=== PATIENT | female | born 1990 | race African-American/Black ===

== ENCOUNTER 2021-02-22 17:42 | Emergency (ER) | payer OTHER, SELFPAY ==
[2021-02-22 17:55] VITALS: BP 128/73; PULSE 87; RESP 18; TEMP 36.7; O2SAT 97
--- NOTE | 2021-02-22 20:36 | ED.FEMALEGU ---
HPI - Female Genitourinary General Chief complaint: Vaginal Bleeding Stated complaint: reaction to vaginal medications Time Seen by Provider: 02/22/21 20:20 Source: patient and RN notes reviewed Mode of arrival: ambulatory Limitations: no limitations History of Present Illness HPI Narrative: Patient is 31 years old -Mexican female presents with vaginal bleeding. Started yesterday immediately after inserting metronidazole suppository intravaginally.. Last menstrual period was February 08 which is 10 days ago. History of bilateral tubal ligation, patient is not vaccinated for COVID-19. Patient claiming the possibility of scratching herself while putting the suppository. Patient also telling me that she been passing blood clots since yesterday patient had a recent diagnosis of bacterial vaginosis. Related Data Allergies Allergy/AdvReac Type Severity Reaction Status Date / Time amoxicillin AdvReac Rash Verified 02/22/21 20:14 nitrofurantoin AdvReac Rash Verified 02/22/21 20:14 [From Macrobid] Review of Systems Review of Systems: CONSTITUTIONAL: Denies fever, chills, or sweats. EYES: Denies visual changes, redness, or discharge. ENT: Denies rhinorrhea, congestion, sore throat, or otalgia. CARDIOVASCULAR: Denies chest pain, palpitations, or edema. RESPIRATORY: Denies cough or dyspnea. GASTROINTESTINAL: Denies abdominal pain, nausea, vomiting, or diarrhea. GENITOURINARY: Denies dysuria or hematuria. SKIN: Denies rash or itching. MUSCULOSKELETAL: Denies back pain, joint pain, or myalgia. NEUROLOGIC: Denies headache, numbness, or weakness. PSYCHIATRIC: Denies anxiety or depression. Exam Narrative: General appearance: Well-developed, well-nourished Skin: Normal color Head: Normocephalic, nontraumatic Eyes: Clear conjunctiva ENT: Oropharynx normal, ears normal, nose normal Neck: Supple, nontender Chest and respiratory: Airway patent, no respiratory distress, no accessory muscle use Heart: Regular rate/rhythm Abdomen: Soft, nontender, no organomegaly, quiet bowel sounds Vascular: Normal peripheral pulses, normal capillary refill. Musculoskeletal: Normal range of motion, nontender back Neurologic: Alert and oriented ?3, [employer] is normal as tested, no gross motor deficit : External Female Exam: normal external appearance, normal appearance of the urethra and Abnormal introitus Speculum Exam - Vagina: normal appearance of the vagina and vaginal bleeding (Slight vaginal bleeding, 2 Q-tip was enough to dry the whole vaginal vault) Speculum Exam - Cervix: Cervical os closed Course Course Emergency Course: Stable Vital Signs Vital signs: Vital Signs Temperature 36.7 C 02/22/21 17:55 Pulse Rate 87 02/22/21 17:55 Respiratory Rate 18 02/22/21 17:55 Blood Pressure 128/73 02/22/21 17:55 Pulse Oximetry 97 02/22/21 17:55 Temperature 36.7 C 02/22/21 17:55 Pulse Rate 87 02/22/21 17:55 Respiratory Rate 18 02/22/21 17:55 Blood Pressure 128/73 02/22/21 17:55 Pulse Oximetry 97 02/22/21 17:55 MDM - Female Genitourinary MDM Narrative Medical decision making narrative: Patient presents with dysfunctional uterine bleeding pelvic exam showed slight vaginal bleeding, 2 Q-tip was enough to dry the whole vaginal vault. No blood clots, no laceration, no tumor the blood was coming out of the os. Critical Care Time Critical Care Time Critical Care Time: Yes Total Critical Care Time: 30 Discharge Plan Discharge Clinical Impression: Dysfunctional uterine bleeding Patient Disposition: Home, Self-Care Condition: Stable Instructions: Abnormal (Dysfunctional) Uterine Bleeding (ED) Additional Instructions: Re
[2021-02-22 21:02] LABS: Basophils Absolute Auto 0.1 K/mm3 (0.0-0.1); Basophils Percent Auto 0.5 % (0.2-1.2); Eosinophils Absolute Auto 0.2 K/mm3 (0-0.3); Eosinophils Percent Auto 1.9 % (0-4.4); Hematocrit 41.9 % (37.0-47.0); Hemoglobin 13.8 g/dL (12.0-15.0); Immature Granulocyte Absolute 0.03 K/mm3 (0.00-0.031); Immature Granulocyte Percent A 0.3 % (0-0.5); Lymphocytes Absolute Auto 4.36 K/mm3 (0.9-3.2); Lymphocytes Percent Auto 42.2 % (18.3-44.2); Mean Corpuscular HGB Conc 32.9 g/dl (32-36); Mean Corpuscular Hemoglobin 29.1 pg (26-34); Mean Corpuscular Volume 88.2 fl (80-100); Mean Platelet Volume 9.5 fl (7.4-10.4); Monocytes Absolute Auto 0.5 K/mm3 (0.1-0.6); Monocytes Percent Auto 5.1 % (2.6-8.5); Neutrophils Absolute Auto 5.2 K/mm3 (1.3-6.7); Platelet Count Result 240 k/mm3 (150-375); Red Blood Count 4.75 M/mm3 (4.2-5.4); Red Cell Distribution Width 13.8 % (11.5-14.5); White Blood Count 10.3 K/mm3 (4.5-10.0)
[2021-02-22 22:16] VITALS: BP 103/65; PULSE 65
[2021-02-22 22:17] VITALS: BP 121/83; PULSE 66
[2021-02-22 22:18] VITALS: BP 121/84; PULSE 70
== END 2021-02-22 22:56 | disposition home or self-care (01) ==
PROVIDERS: Emergency Provider Emergency Medicine
DX: N93.8 Other specified abnormal uterine and vaginal bleeding (principal)
CPT/HCPCS: 36415; 81025; 85025; 99283

== ENCOUNTER 2021-11-24 13:59 | Emergency (ER) | payer OTHER, SELFPAY ==
[2021-11-24] VITALS (12 sets, daily range): BP systolic 112–151; BP diastolic 76–96; PULSE 69–106; RESP 12–24; TEMP 36.6; O2SAT 96–100
--- NOTE | ~2021-11-24 | XR_ITS ---
EXAMINATION: XR chest 1V portable INDICATION: Palpitations, shortness of breath TECHNIQUE: Portable AP chest at 1433 hours COMPARISON: None available FINDINGS: The lungs are free of acute opacities. No pleural effusion or pneumothorax. The cardiomedia stinal silhouette is normal. IMPRESSION: 1. No acute cardiopulmonary abnormality. Reviewed, dictated and finalized at location F.
--- NOTE | 2021-11-24 14:11 | ECG_ITS ---
Measurements Intervals [place] Rate: 97 P: 64 NV: 155 QRS: 52 QRSD: 108 T: 42 QT: 376 QTc: 479 Interpretive Statements SINUS RHYTHM WITHIN NORMAL LIMITS NO PREVIOUS ECG AVAILABLE FOR COMPARISON Electronically Signed On 11-24-2021 16:54:21 CDT by Rubin Stokes M.D.
--- NOTE | 2021-11-24 14:26 | ED.ARRPALP ---
HPI - Arrhythmia/Palpitations General Chief Complaint: Arrhythmia/Palpitations Stated Complaint: palpations Time Seen by Provider: 11/24/21 14:08 Source: RN notes reviewed History of Present Illness HPI narrative: Patient presents emergency department from home for palpitations. The patient states she was started on phentermine last week for weight loss. has been taking it daily and today she went to work out states that following working out she smoked a reasonable cigarette black cigarette she is a feeling that she began feeling her heart was racing and she felt jittery. Patient states that she is feeling mildly better at this time but still feels like her heart is racing she denies any fevers or chills, chest pain shortness of breath abdominal pain states he nausea vomiting or any other symptoms Related Data Allergies Allergy/AdvReac Type Severity Reaction Status Date / Time amoxicillin AdvReac Rash Verified 11/24/21 15:11 nitrofurantoin AdvReac Rash Verified 11/24/21 15:11 [From Macrobid] Review of Systems Review of Systems: Gen.: Denies fevers or chills ENT: Denies congestion Respiratory: Denies shortness of breath or cough CV: See HPI GI: Denies abdominal pain nausea, emesis or diarrhea denies Musculoskeletal: Denies back pain or muscle pain Neuro: Denies numbness, tingling, weakness or focal weakness Skin: Denies rash Except as documented, all other systems reviewed and negative PMFSH Past Medical History Medical History (Updated 11/24/21 @ 17:55 by Gray Duran DO) Patient denies significant medical history Social History Social History (Updated 11/24/21 @ 14:28 by Gray Duran DO) Smoking status: Current every day smoker Exam Narrative: APPEARANCE: No acute distress, nontoxic, resting in bed EYES: EOMI HEENT: Normocephalic, atraumatic, OMM RESPIRATORY: No respiratory distress Clear to auscultation bilaterally with no rhonchi wheezing or rales. CARDIOVASCULAR: Regular rate and rhythm without murmurs rubs or gallops. ABDOMINAL: Soft, nontender, nondistended, no rebound or guarding MUSCULOSKELETAl: Moves all extremities. No clubbing, cyanosis or edema. NEURO: Awake and alert. Following commands, speech normal, no focal deficits SKIN:: Warm, dry. 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 Discussed need for follow-up with primary care, proper use of medication, and reasons to return to the emergency department. Patient understands and agrees to current treatment plan Vital Signs Vital signs: Vital Signs Temperature 97.8 F 11/24/21 14:02 Pulse Rate 103 H 11/24/21 14:02 Respiratory Rate 18 11/24/21 14:02 Blood Pressure 151/96 H 11/24/21 14:02 Pulse Oximetry 96 11/24/21 14:02 Oxygen Delivery Room Air 11/24/21 14:02 Temperature 97.8 F 11/24/21 14:02 Pulse Rate 74 11/24/21 17:15 Respiratory Rate 19 11/24/21 17:15 Blood Pressure 112/76 11/24/21 16:46 Pulse Oximetry 100 11/24/21 17:15 Oxygen Delivery Room Air 11/24/21 14:02 MDM - Arrhythmia/Palpitations Lab Data Result diagrams: 11/24/21 14:24 11/24/21 14:24 Labs: Lab Results 11/24/21 11/24/21 11/24/21 Range/Units 14:24 14:24 14:24 WBC 7.8 (4.5-10.0) K/mm3 RBC 4.96 (4.2-5.4) M/mm3 Hgb 13.6 (12.0-15.0) g/dL Hct 41.5 (37.0-47.0) % MCV 83.7 (80-100) fl MCH 27.4 (26-34) pg MCHC 32.8 (32-36) g/dl RDW 14.8 H (11.5-14.5) % Plt Count 289 (150-375) k/mm3 MPV 9.2 (7.4-10.4) fl Immature Gran % (Auto) 0.1 (0-0.5) % Neut % (Auto) 58.3 (45.5
[2021-11-24 14:41] LABS: Basophils Absolute Auto 0.1 K/mm3 (0.0-0.1); Basophils Percent Auto 0.9 % (0.2-1.2); Eosinophils Absolute Auto 0.1 K/mm3 (0-0.3); Eosinophils Percent Auto 1.5 % (0-4.4); Hematocrit 41.5 % (37.0-47.0); Hemoglobin 13.6 g/dL (12.0-15.0); Immature Granulocyte Absolute 0.01 K/mm3 (0.00-0.031); Immature Granulocyte Percent A 0.1 % (0-0.5); Lymphocytes Absolute Auto 2.62 K/mm3 (0.9-3.2); Lymphocytes Percent Auto 33.6 % (18.3-44.2); Mean Corpuscular HGB Conc 32.8 g/dl (32-36); Mean Corpuscular Hemoglobin 27.4 pg (26-34); Mean Corpuscular Volume 83.7 fl (80-100); Mean Platelet Volume 9.2 fl (7.4-10.4); Monocytes Absolute Auto 0.4 K/mm3 (0.1-0.6); Monocytes Percent Auto 5.6 % (2.6-8.5); Neutrophils Absolute Auto 4.5 K/mm3 (1.3-6.7); Neutrophils Percent Auto 58.3 % (45.5-73.1); Platelet Count Result 289 k/mm3 (150-375); Red Blood Count 4.96 M/mm3 (4.2-5.4); Red Cell Distribution Width 14.8 % (11.5-14.5); White Blood Count 7.8 K/mm3 (4.5-10.0)
[2021-11-24 14:53] LABS: Prothrombin Time 13.2 Seconds (11.1-14.7)
[2021-11-24 14:54] LABS: Partial Thromboplastin Time 29.3 SECONDS (22.3-36.8)
[2021-11-24 15:02] LABS: Alanine Aminotransferase 13 U/L (6-35); Albumin Level 4.6 g/dL (3.5-5.1); Alkaline Phosphatase 64 U/L (38-126); Anion Gap 9 mmol/L (8-16); Aspartate Amino Transferase 27 U/L (14-36); Bilirubin,Total 0.8 mg/dL (0.2-1.3); Blood Urea Nitrogen 14 mg/dL (7-17); Calcium 9.4 mg/dL (8.4-10.2); Carbon Dioxide 22 mmol/L (22-30); Chloride 107 mmol/L (98-107); Estimated CRCL calculation 93 ml/min; Estimated Glomerular Filt Rate > 60; Glucose 92 mg/dL (65-110); Lipase 38 U/L (23-300); Potassium 3.8 mmol/L (3.4-5.0); Sodium 138 mmol/L (137-145)
[2021-11-24 15:06] LABS: Troponin I 0.012 ng/mL (0.000-0.034)
[2021-11-24] MEDS: SODIUM CHLORIDE 0.9% IV 1,000 ML 999 ML IV CONT (15:10)
[2021-11-24 17:45] LABS: Troponin I < 0.012 ng/mL (0.000-0.034)
== END 2021-11-24 18:00 | disposition home or self-care (01) ==
PROVIDERS: Emergency Provider Emergency Medicine
DX: R00.2 Palpitations (principal); F17.210 Nicotine dependence, cigarettes, uncomplicated
CPT/HCPCS: 36415; 71045; 80053; 81025; 83690; 83735; 84443; 84484; 85025; 85610; 85730; 93005; 96360; 99284; J7030

== ENCOUNTER 2022-01-12 16:43 | Emergency (ER) | payer MEDICAID, SELFPAY ==
--- NOTE | ~2022-01-12 | CT_ITS ---
EXAMINATION: CT abdomen pelvis w con DATE: 01/12/2022 18:05 INDICATION: Mid abdominal pain for 2 week. TECHNIQUE: Computed tomography (CT) of the abdomen and pelvis was performed with 100 cc Omnipaque 350 intravenous contrast. The dose-length product was 543.83 mGy-cm. Automated exposure control and iter ative reconstruction technique were employed. COMPARISON: None. FINDINGS: Lung bases are unremarkable. Heart size is normal. No significant pleural or pericardial ef fusion. No significant vascular abnormality. No lymphadenopathy. The liver, spleen, pancreas, adrenal glands and kidneys are unremarkable. Gallbladder is present. Non obstructive bowel gas pattern. Normal appendix. No free air or free fluid. No abnormal pelvic masses. No acute osseous abnormality. IMPRESSION: 1. No acute abdominal abnormality. Reviewed, dictated and finalized at location A.
[2022-01-12 16:45] VITALS: BP 122/79; PULSE 100; RESP 16; TEMP 36.6; O2SAT 100
[2022-01-12 17:03] LABS: Basophils Absolute Auto 0.1 K/mm3 (0.0-0.1); Eosinophils Absolute Auto 0.2 K/mm3 (0-0.3); Eosinophils Percent Auto 2.7 % (0-4.4); Hematocrit 45.2 % (37.0-47.0); Hemoglobin 14.9 g/dL (12.0-15.0); Lymphocytes Absolute Auto 3.23 K/mm3 (0.9-3.2); Mean Corpuscular Hemoglobin 27.5 pg (26-34); Mean Corpuscular Volume 83.4 fl (80-100); Mean Platelet Volume 9.7 fl (7.4-10.4); Monocytes Absolute Auto 0.5 K/mm3 (0.1-0.6); Monocytes Percent Auto 7.4 % (2.6-8.5); Neutrophils Absolute Auto 2.8 K/mm3 (1.3-6.7); Neutrophils Percent Auto 40.9 % (45.5-73.1); Platelet Count Result 292 k/mm3 (150-375); Red Blood Count 5.42 M/mm3 (4.2-5.4); Red Cell Distribution Width 15.2 % (11.5-14.5); White Blood Count 6.7 K/mm3 (4.5-10.0)
--- NOTE | 2022-01-12 17:08 | ED.ABDPAIN ---
HPI - Abdominal Pain General Chief Complaint: Abdominal Pain Stated Complaint: abd pain Time Seen by Provider: 01/12/22 17:00 Source: patient Mode of arrival: ambulatory Limitations: no limitations History of Present Illness HPI narrative: This is a 31 year old female that presents to the ER for epigastric pain present over the last couple of weeks. The pain is burning in nature. Worse after eating. Some relief with arleth seltzer. Denies fever, nausea, vomiting, or diarrhea. Related Data Allergies Allergy/AdvReac Type Severity Reaction Status Date / Time amoxicillin AdvReac Rash Verified 01/12/22 16:53 nitrofurantoin AdvReac Rash Verified 01/12/22 16:53 [From Macrobid] Review of Systems Review of Systems: CONSTITUTIONAL: Denies fever GASTROINTESTINAL: Reports abdominal pain. Denies nausea, vomiting, or diarrhea. GENITOURINARY: Denies dysuria or hematuria. All systems reviewed & are unremarkable except as noted in HPI and below PMFSH Past Medical History Medical History (Updated 01/12/22 @ 19:24 by Lady Marshall PA-C) Patient denies significant medical history Surgical History Surgical History (Updated 01/12/22 @ 17:10 by Lady Marshall PA-C) History of tubal ligation Social History Social History (Updated 01/12/22 @ 17:11 by Lady Marshall PA-C) Smoking status: Current every day smoker Substance use: never Exam Narrative: GENERAL: Well-appearing, well-nourished, and in no acute distress. HEAD: Normocephalic, atraumatic. EYES: EOMI. CHEST: Clear to auscultation. No respiratory distress. No wheezes rales or rhonchi HEART: Regular rate and rhythm. No murmur heard. Normal peripheral pulses. ABDOMEN: Soft, nondistended, normal active bowel sounds. Mild tenderness to palpation in the epigastrium, without guarding EXTREMITIES: Normal range of motion. No edema. SKIN: Warm, dry, no rash. NEURO: No focal deficits. Alert and oriented x3. PSYCH: Normal mood and affect Course Vital Signs Vital signs: Vital Signs Temperature 97.9 F 01/12/22 16:45 Pulse Rate 100 01/12/22 16:45 Respiratory Rate 16 01/12/22 16:45 Blood Pressure 122/79 01/12/22 16:45 Pulse Oximetry 100 01/12/22 16:45 Oxygen Delivery Room Air 01/12/22 16:45 Temperature 97.9 F 01/12/22 16:45 Pulse Rate 100 01/12/22 16:45 Respiratory Rate 16 01/12/22 16:45 Blood Pressure 122/79 01/12/22 16:45 Pulse Oximetry 100 01/12/22 16:45 Oxygen Delivery Room Air 01/12/22 16:45 MDM - Abdominal Pain MDM Narrative Medical decision making narrative: Patient presents to the emergency department for epigastric abdominal pain, worse with eating. Noted over the last couple weeks. She is afebrile and nontoxic-appearing. Her vitals are stable. CBC and metabolic panel without concerning findings. Lipase is normal. UA with 6-10 white blood cells, but many squamous epithelial cells. Patient is not having any urinary symptoms. Bedside test is negative. CT scan of the abdomen and pelvis without acute findings. Patient was updated on case findings. Instructed to continue [id number] PPI. Is to follow-up with her primary care doctor. Will also be given gastroenterology if needed. She was given warnings to return to the ER Lab Data Attestation: I reviewed the patient's lab results. Result diagrams: 01/12/22 16:55 01/12/22 17:21 Labs: Lab Results 01/12/22 01/12/22 01/12/22 Range/Units 16:55 17:04 17:21 WBC 6.7 (4.5-10.0) K/mm3 RBC 5.42 H (4.2-5.4) M/mm3 Hgb 14.9 (12.0-15.0) g/dL Hct 45.2 (37.0-47.0) % MCV 83.4 (80-100) fl MCH 27.5 (26-34) pg MCHC 33.0 (32-36) g/dl RDW 15.2 H (11.5-14.5) % Plt Count 292 (150-375) k/mm3 MPV 9.7 (7.4-10.4) fl Immature Gran % (Auto) 0.0 (0-0.5) % Neut % (Auto) 40.9 L (45.5-73.1) % Lymph % (Auto) 48.0 H (18.3-44.2) % [place] % (Auto) 7.4 (2.6-8.5) % Eos %
[2022-01-12 17:14] LABS: Appearance Urine Slightly Cloudy (Clear); Bilirubin Urine 1+ (Negative); Color Urine Yellow (Yellow); Glucose Urine UA Negative (Negative); Ketones Urine Trace mg/dL (Negative); Leukocyte Esterase Ur Trace LEU/UL (Negative); Nitrate Urine Negative (Negative); Protein Urine 1+ mg/dL (Negative); pH Urine 7.5 (5.0-9.0)
[2022-01-12 17:20] LABS: Add Urine Microscopic? YES; Blood Urine Trace-Intact (Negative)
[2022-01-12 17:22] LABS: Mucus Urine Heavy /lpf; Squamous Epithelial Cell Urine Many /hpf (Few)
[2022-01-12] MEDS: SODIUM CHLORIDE 0.9% IV 1,000 ML 999 ML IV CONT (17:30)
[2022-01-12] MEDS: PANTOPRAZOLE SODIUM IV 40 MG VIAL IV PUSH (17:31)
[2022-01-12] MEDS: ONDANSETRON INJ 4 MG/2 ML VIAL IV PUSH (17:31)
[2022-01-12 17:36] LABS: Alanine Aminotransferase 11 U/L (6-35); Albumin Level 4.6 g/dL (3.5-5.1); Alkaline Phosphatase 71 U/L (38-126); Anion Gap 8 mmol/L (8-16); Aspartate Amino Transferase 23 U/L (14-36); Bilirubin,Total 0.7 mg/dL (0.2-1.3); Blood Urea Nitrogen 12 mg/dL (7-17); Calcium 9.1 mg/dL (8.4-10.2); Carbon Dioxide 27 mmol/L (22-30); Chloride 102 mmol/L (98-107); Estimated CRCL calculation 92 ml/min; Estimated Glomerular Filt Rate > 60; Glucose 93 mg/dL (65-110); Lipase 78 U/L (23-300); Potassium 3.7 mmol/L (3.4-5.0); Sodium 137 mmol/L (137-145)
--- NOTE | 2022-01-12 17:55 | PC.NURSE ---
Pt to CT.
[2022-01-12 19:41] VITALS: BP 104/62; PULSE 86; RESP 18; O2SAT 100
== END 2022-01-12 19:42 | disposition home or self-care (01) ==
PROVIDERS: Emergency Provider General Practice
DX: R10.13 Epigastric pain (principal); F17.200 Nicotine dependence, unspecified, uncomplicated
CPT/HCPCS: 36415; 74177; 80053; 81001; 81025; 83690; 85025; 96361; 96365; 96375; 99284; C9113; J0131; J2405; J7030; Q9967

== ENCOUNTER 2023-02-15 15:40 | Emergency (ER) | payer OTHER, SELFPAY ==
[2023-02-15 15:42] VITALS: BP 119/69; PULSE 72; RESP 17; TEMP 37.1; O2SAT 99
--- NOTE | 2023-02-15 16:40 | PC.NURSE ---
first call to room patient at this time, no answer
--- NOTE | 2023-02-15 16:46 | PC.NURSE ---
second attempt at calling patient from waiting room to room, no answer. patient left without being seen
== END 2023-02-15 16:46 | disposition left against medical advice (07) ==
LOC: ANHED 16:52
DX: Z11.3 Encounter for screening for infections with a predominantly sexual mode of transmission (principal)
CPT/HCPCS: 99199

== ENCOUNTER 2023-02-15 17:41 | Emergency (ER) | payer OTHER, SELFPAY ==
[2023-02-15 17:45] VITALS: BP 122/79; PULSE 73; RESP 15; TEMP 37; O2SAT 99
--- NOTE | 2023-02-15 18:30 | ED.GENADULT ---
HPI - General Adult General Chief complaint: Unspecified Stated complaint: pt reports possible exposure to STI Time Seen by Provider: 02/15/23 18:22 History of Present Illness HPI narrative: 33 y/o F reports for evaluation for STD testing. The patient was tested for GC, chlamydia and trichomonas by her PCP on 02/01. States she was contacted by her PCP this week who told her the STD testing was negative, however she received a call from the health department today stating she was positive for chlamydia. She denies dysuria, hematuria, vaginal discharge, vaginal lesions, vaginal bleeding, abdominal pain, back pain, fever, vomiting. LMP 02/07. Pt came to the ED to get repeat testing. She has not been treated. Related Data Allergies Allergy/AdvReac Type Severity Reaction Status Date / Time amoxicillin AdvReac Rash Verified 01/12/22 16:53 nitrofurantoin AdvReac Rash Verified 01/12/22 16:53 [From [place]ima] Review of Systems Review of Systems: CONSTITUTIONAL: Denies fever, chills EYES: Denies visual changes, redness, or discharge. ENT: Denies rhinorrhea, congestion, sore throat, or otalgia. CARDIOVASCULAR: Denies chest pain, palpitations, or edema. RESPIRATORY: Denies cough or dyspnea. GASTROINTESTINAL: Denies abdominal pain, nausea, vomiting, or diarrhea. GENITOURINARY: Denies dysuria or hematuria. SKIN: Denies rash or itching. MUSCULOSKELETAL: Denies back pain, joint pain, or myalgia. NEUROLOGIC: Denies headache, numbness, dizziness, or weakness. PSYCHIATRIC: Denies anxiety or depression. [facility] Past Medical History Medical History Patient denies significant medical history Surgical History Surgical History History of tubal ligation Social History Social History Smoking status: Current every day smoker Substance use: never Exam Narrative: GENERAL: Well-appearing, in no acute distress. HEAD: Normocephalic NECK: Supple. CHEST: No respiratory distress. Clear to auscultation, no adventitious breath sounds. HEART: Regular rate and rhythm. No murmur heard. Normal peripheral pulses. ABDOMEN: Soft, nontender, normal active bowel sounds. No CVA tenderness. : No lesions, erythema or edema to external genitalia, vaginal canal or cervix. Scant amount of brown discharge in vaginal vault. No mucopurulent drainage, bright red blood. Cervical os closed. No CMT. No adnexal masses or tenderness appreciated. EXTREMITIES: Normal range of motion. No edema. SKIN: Warm, dry, no rash. NEURO: No focal deficits. Alert and oriented x3. PSYCH: Normal mood and affect. Course Vital Signs Vital signs: Vital Signs Temperature 98.6 F 02/15/23 17:45 Pulse Rate 73 02/15/23 17:45 Respiratory Rate 02/15/23 17:45 Blood Pressure 122/79 02/15/23 17:45 Pulse Oximetry 99 02/15/23 17:45 Oxygen Delivery Room Air 02/15/23 17:45 Temperature 98.6 F 02/15/23 17:45 Pulse Rate 73 02/15/23 17:45 Respiratory Rate 02/15/23 17:45 Blood Pressure 122/79 02/15/23 17:45 Pulse Oximetry 99 02/15/23 17:45 Oxygen Delivery Room Air 02/15/23 17:45 Medical Decision Making MDM Narrative Medical decision making narrative: 33-year-old female reports for evaluation for STD testing. See HPI for further history. She is well-appearing on exam and vitals are stable. Abdomen is soft and nontender. Pelvic exam shows a scant amount of blood, likely secondary to patient's resolving menstruation. No CMT or mucopurulent drainage. UA significant for hematuria, no UTI. Media positive. Trichomonas and gonorrhea are negative. test negative. Patient does not meet criteria for PID. Labs discussed with patient. Plan to treat her with Rocephin and doxycycline and have her follow-up with her PCP. First dose provided here. Encourag
[2023-02-15 19:21] LABS: Appearance Urine Cloudy (Clear); Bacteria Urine Rare /hpf; Bilirubin Urine Negative (Negative); Blood Urine 3+ (Negative); Color Urine Yellow (Yellow); Glucose Urine UA Negative (Negative); Ketones Urine Negative (Negative); Leukocyte Esterase Ur Negative LEU/UL (Negative); Nitrate Urine Negative (Negative); Non Pathogenic Casts 0-2; Protein Urine Negative (Negative); RBC Urine 0-2 /hpf (0-2); Specific Grav Ur 1.033 (1.001-1.035); Squamous Epithelial Cell Urine Moderate /hpf (Few); Urobilinogen Urine 0.2 mg/dL (<2.0); WBC Urine 0-5 /hpf; pH Urine 5.5 (5.0-9.0)
[2023-02-15 19:39] LABS: Add Urine Microscopic? YES
[2023-02-15 21:05] LABS: Trichomonas Vag PCR NOT DETECTED (NOT DETECTE)
[2023-02-15 21:31] LABS: Chlamydia trachomatis DETECTED (NOT DETECTE); Neisseria gonorrhoeae PCR NOT DETECTED (NOT DETECTE)
[2023-02-15] MEDS: DOXYCYCLINE HYCLATE 100 MG TABLET PO (22:37)
[2023-02-15] MEDS: cefTRIAXone 1 GM VIAL 0.5 GM IM (22:38)
[2023-02-15 22:51] VITALS: BP 125/78; PULSE 72; RESP 17; O2SAT 100
== END 2023-02-15 22:53 | disposition home or self-care (01) ==
PROVIDERS: Emergency Provider Physician Assistant
DX: A74.9 Chlamydial infection, unspecified (principal); F17.210 Nicotine dependence, cigarettes, uncomplicated
CPT/HCPCS: 81001; 81025; 87491; 87591; 87661; 96372; 99284; A9270; J0696

== ENCOUNTER 2024-02-13 10:40 | Emergency (ER) | payer OTHER, SELFPAY ==
[2024-02-13 10:54] VITALS: BP 120/75; PULSE 88; RESP 15; TEMP 36.8; O2SAT 100
[2024-02-13 12:15] VITALS: BP 123/77; PULSE 84; RESP 16; O2SAT 100
--- NOTE | 2024-02-13 13:01 | ED.GENADULT ---
HPI - General Adult General Chief complaint: Unspecified Stated complaint: ear, throat pain, yeast infection Time Seen by Provider: 02/13/24 12:19 History of Present Illness HPI narrative: 34-year-old female presenting with URI symptoms and vaginal discharge. States that for the last day or so she has had a sore throat as well as some right ear pain. States that she called her PCP today who advised that she come to the ER. She is concerned that she has strep. She also complains of a thick vaginal discharge. States that she is chronically on Flagyl for BV and she recently ran out. States that she did have unprotected intercourse recently. States that she would like to be tested for STDs. No abdominal pain, dysuria, nausea or vomiting. No chest pain or shortness of breath. Related Data Allergies Allergy/AdvReac Type Severity Reaction Status Date / Time amoxicillin AdvReac Rash Verified 02/13/24 10:59 nitrofurantoin AdvReac Rash Verified 02/13/24 10:59 [From Macrobid] Review of Systems Review of Systems: All systems reviewed & are unremarkable except as noted in HPI and below PMFSH Past Medical History Medical History Patient denies significant medical history Surgical History Surgical History History of tubal ligation Social History Social History Smoking status: Current every day smoker Substance use: never Exam Narrative: GENERAL: Well-appearing, well-nourished, and in no acute distress. HEAD: Normocephalic, atraumatic. EYES: PERRLA and EOMI. ENT: Mild posterior pharyngeal erythema, no edema, no exudates; normal TMs NECK: Supple. CHEST: Clear to auscultation. No respiratory distress. HEART: Regular rate and rhythm ABDOMEN: Soft, nontender, nondistended EXTREMITIES: Normal range of motion. SKIN: Warm, dry, no rash. NEURO:Alert and oriented x3. PSYCH: Normal mood and affect. Course Vital Signs Vital signs: Vital Signs Temperature 98.3 F 02/13/24 10:54 Pulse Rate 88 02/13/24 10:54 Respiratory Rate 15 02/13/24 10:54 Blood Pressure 120/75 02/13/24 10:54 Pulse Oximetry 100 02/13/24 10:54 Oxygen Delivery Room Air 02/13/24 10:54 Temperature 98 F 02/13/24 15:16 Pulse Rate 80 02/13/24 15:16 Respiratory Rate 16 02/13/24 15:16 Blood Pressure 105/74 02/13/24 15:16 Pulse Oximetry 99 02/13/24 15:16 Oxygen Delivery Room Air 02/13/24 10:54 Medical Decision Making MDM Narrative Medical decision making narrative: 34-year-old female presenting with sore throat and vaginal discharge. Vitals within normal limits. Exam is unremarkable. Patient is negative for COVID, influenza, RSV. Negative for Trichomonas. Gonorrhea and chlamydia are pending, patient would like empiric treatment which has been provided. Patient reports history of BV, will send in for a course of Flagyl. Discussed appropriate supportive care and return precautions. Patient is agreeable with this plan. Discharged in stable condition. Differential Diagnosis Differential Diagnosis: Sore throat, URI, vaginal discharge Medical Records Medical records reviewed: Yes I reviewed the external patient's medical records. Vital Signs Vital Signs: Vital Signs Temperature 98.3 F 02/13/24 10:54 Pulse Rate 88 02/13/24 10:54 Respiratory Rate 15 02/13/24 10:54 Blood Pressure 120/75 02/13/24 10:54 Pulse Oximetry 100 02/13/24 10:54 Oxygen Delivery Room Air 02/13/24 10:54 Temperature 98 F 02/13/24 15:16 Pulse Rate 80 02/13/24 15:16 Respiratory Rate 16 02/13/24 15:16 Blood Pressure 105/74 02/13/24 15:16 Pulse Oximetry 99 02/13/24 15:16 Oxygen Delivery Room Air 02/13/24 10:54 Lab Data Lab results reviewed: Yes I reviewed the patient's lab results. Labs: Lab Results 0
[2024-02-13] MEDS: ACETAMINOPHEN 500 MG TABLET 1000 MG PO (13:10)
[2024-02-13] MEDS: IBUPROFEN 400 MG TABLET PO (13:11)
[2024-02-13 13:18] LABS: Add Urine Microscopic? YES; Appearance Urine Cloudy (Clear); Bacteria Urine Rare /hpf; Bilirubin Urine Negative (Negative); Blood Urine Negative (Negative); Color Urine Yellow (Yellow); Glucose Urine UA Negative (Negative); Ketones Urine Negative (Negative); Leukocyte Esterase Ur Trace LEU/UL (Negative); Nitrate Urine Negative (Negative); Non Pathogenic Casts 0-2; Protein Urine Trace mg/dL (Negative); Specific Grav Ur 1.021 (1.001-1.035); Squamous Epithelial Cell Urine Few /hpf (Few); Urobilinogen Urine 0.2 mg/dL (<2.0); WBC Urine 0-5 /hpf (0-3)
[2024-02-13 13:49] LABS: Strep Group A RT-PCR NOT DETECTED (Negative)
[2024-02-13 14:01] LABS: Influenza A QL RT-PCR Negative (Negative); Influenza B QL RT-PCR Negative (Negative); RSV RNA, RT-PCR Negative (Negative); SARS-CoV-2 RNA PCR Negative (Negative)
[2024-02-13 14:26] LABS: Trichomonas Vag PCR NOT DETECTED (NOT DETECTE)
[2024-02-13 14:50] LABS: Chlamydia trachomatis NOT DETECTED (NOT DETECTE); Neisseria gonorrhoeae PCR NOT DETECTED (NOT DETECTE)
[2024-02-13 15:16] VITALS: BP 105/74; PULSE 80; RESP 16; TEMP 36.6; O2SAT 99
== END 2024-02-13 15:16 | disposition home or self-care (01) ==
PROVIDERS: Emergency Provider Emergency Medicine; PCP Internal Medicine
DX: J06.9 Acute upper respiratory infection, unspecified (principal); N89.8 Other specified noninflammatory disorders of vagina; F17.200 Nicotine dependence, unspecified, uncomplicated; Z20.822 Contact with and (suspected) exposure to COVID-19; Z11.3 Encounter for screening for infections with a predominantly sexual mode of transmission
CPT/HCPCS: 81001; 87491; 87591; 87637; 87651; 87661; 99283; A9270

== ENCOUNTER 2024-06-02 03:27 | Emergency (ER) | payer OTHER, SELFPAY ==
--- NOTE | ~2024-06-02 | XR_ITS ---
Portable chest x-ray Comparison: 11/24/2021 Clinical History: Shortness of breath Findings: Lungs are clear, without focal consolidation or pleural effusion. Cardiomediastinal silho uette is stable. Bones and soft tissues are unremarkable. Impression: Normal chest. Reviewed, dictated and finalized at location . [facility] AREA Impression: Normal chest.
--- NOTE | 2024-06-02 03:29 | ECG_ITS ---
Test Date: 2024-06-02 03:48:33 Measurements Intervals [place] Rate: 111 P: 66 MN: 145 QRS: 62 QRSD: 85 T: 42 QT: 312 QTc: 425 Interpretive Statements SINUS TACHYCARDIA ABNORMAL RHYTHM ECG No previous ECG available for comparison Electronically Signed On 06-02-2024 22:50:44 [employer]ITCHER AROUND by Valerio Melendez M.D.
[2024-06-02 03:30] VITALS: BP 149/111; PULSE 151; RESP 18; TEMP 36.9; O2SAT 99
[2024-06-02 04:13] VITALS: O2SAT 99
[2024-06-02 04:13] LABS: Basophils Percent Auto 0.4 % (0.2-1.2); Eosinophils Absolute Auto 0.1 K/mm3 (0-0.3); Eosinophils Percent Auto 1.2 % (0-4.4); Hematocrit 39.2 % (37.0-47.0); Immature Granulocyte Absolute 0.02 K/mm3 (0.00-0.031); Immature Granulocyte Percent A 0.3 % (0-0.5); Lymphocytes Absolute Auto 1.91 K/mm3 (0.9-3.2); Lymphocytes Percent Auto 25.5 % (18.3-44.2); Mean Corpuscular HGB Conc 33.2 g/dl (32-36); Mean Corpuscular Hemoglobin 27.2 pg (26-34); Monocytes Absolute Auto 0.6 K/mm3 (0.1-0.6); Monocytes Percent Auto 7.9 % (2.6-8.5); Neutrophils Absolute Auto 4.9 K/mm3 (1.3-6.7); Neutrophils Percent Auto 64.7 % (45.5-73.1); Platelet Count Result 309 k/mm3 (150-375); Red Blood Count 4.78 M/mm3 (4.2-5.4); Red Cell Distribution Width 14.7 % (11.5-14.5); White Blood Count 7.5 K/mm3 (4.5-10.0)
[2024-06-02 04:31] LABS: Alanine Aminotransferase 13 U/L (6-35); Albumin Level 4.4 g/dL (3.5-5.1); Alkaline Phosphatase 61 U/L (38-126); Anion Gap 6 mmol/L (4-12); Aspartate Amino Transferase 24 U/L (14-36); Bilirubin,Total 0.6 mg/dL (0.2-1.3); Blood Urea Nitrogen 12 mg/dL (7-17); Carbon Dioxide 23 mmol/L (22-30); Chloride 108 mmol/L (98-107); Estimated CRCL calculation 106 ml/min; Estimated Glomerular Filt Rate > 60; Glucose 139 mg/dL (65-110); Potassium 3.7 mmol/L (3.4-5.0); Sodium 137 mmol/L (137-145)
[2024-06-02] MEDS: diazePAM INJ (*CRX) 10 MG/2 ML SYRINGE 5 MG IV PUSH (04:38)
[2024-06-02 04:41] LABS: Strep Group A RT-PCR NOT DETECTED (Negative)
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
[2024-06-02 04:52] LABS: Influenza A QL RT-PCR Negative (Negative); Influenza B QL RT-PCR Negative (Negative); RSV RNA, RT-PCR Negative (Negative); SARS-CoV-2 RNA PCR Negative (Negative)
[2024-06-02 05:58] VITALS: BP 134/90; PULSE 87; RESP 15; O2SAT 100
--- OUTSIDE RECORDS SUMMARY | 2024-06-09 03:11 | XMS_ITS ---
Author Organization [facility] Address [address] [place] [address] Care Team Providers Care Structural Iron Erector Name Role Phone Silvana Benítez Primary Care Provider [phone] REASON FOR VISIT r/s from 01/02/2024 Encounters Encounter Location Date Provider Diagnosis [address] [place] [address] 01/23/2024 Silvana Benítez Plan Of Treatment No Information Progress Notes * Carmen HUFF NDOB:1990 (34 yo F)Acc No.[id number]:01/23/2024 UNLOCKED PROGRESS NOTE Patient:?Carmen HUFF Provider:?Silvana Benítez, LEONID, GAS CHARGER-BC, PMHNP-BC :1990???Age:33 Y???Sex:Female D ate:01/23/2024 Address:[facility] Subjective: * Chief Complaints: * ???1. R/s from 01/02/2024. * Medical History:? Objective: * Vitals:? Assessment: Plan: * Treatment: * * Electronic signature of Silvana Benítez , [id number] on 06/09/2024 at 03:11 AM ARTIST AGENT Sign off status: Pending * Provider:?Dakota Grissom, GAS CHARGER-BC, PMHNP-BC Date:?01/23/2024 Generated for Martin wen/Dona/eTransmitting on:?06/09/2024 03:11 AM ARTIST AGENT
--- OUTSIDE RECORDS SUMMARY | 2024-06-09 03:12 | XMS_ITS ---
Author Organization [facility] Address [address] [place] [address] Care Team Providers Care Lighting Technician Name Role Phone Silvana Benítez Primary Care Provider REASON FOR VISIT 1 Month Psych F/U & Med Refill Encounters Encounter Location Date Provider Diagnosis [address] [place] [address] 01/02/2024 Silvana Benítez Plan Of Treatment No Information Progress Notes * Carmen HUFF NDOB:1990 (34 yo F)Acc No.[id number]:01/02/2024 UNLOCKED PROGRESS NOTE Patient:?Carmen HUFF Provider:?Silvana Benítez, LEONID, DIRECTOR OF MARKETING [employer] PERFORMANCE ADS-BC, PMHNP-BC :1990???Age:33 Y???Sex:Female D ate:01/02/2024 [facility] Subjective: * Chief Complaints: * ???1. 1 Month Psych F/U & Me d Refill. * Medical History:? Objective: * Vitals:? Assessment: Plan: * Treatment: * * Electronic signature of Silvana Benítez , [id number] on 06/09/2024 at 03:11 AM DEVELOPMENT MANAGER Sign off status: Pending * Provider:?Dakota Grissom, DIRECTOR OF MARKETING [employer] PERFORMANCE ADS-BC, PMHNP-BC Date:?01/02/2024 Generated for Martin wen/Dona/eTransmitting on:?06/09/2024 03:11 AM DEVELOPMENT MANAGER
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
--- OUTSIDE RECORDS SUMMARY | 2024-06-09 03:32 | XMS_ITS | Patient Health Record ---
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 Name Role Phone Silvana Benítez Primary Care Provider Allergies Allergen (clinical drug ingredient) Drug/Non Drug Allergy documented on EMR Reaction Allergy Type Onset Date Status nitrofurantoin, macrocrystals / nitrofurantoin, monohydrate Macrobid Unknown Drug Allergy Active amoxicillin Amoxicillin Unknown Drug Allergy Act baldev Reason For Referral No Information Medications Medication SIG (Take, Route, Frequency, Duration) Notes Start Date End Date Status predniSONE 10 MG 1 tablet Orally Once a day Active Ergocalciferol 1.25 MG (53075 UT) 1 capsule Orally Active Banophen 25 MG 1 tablet at bedtime as needed Orally Once a day Active Ashwagandha 500 MG as directed Orally Active metroNIDAZOLE 500 MG 1 tablet Orally Thr ee times a day Active hydrOXYzine Pamoate 25 MG 1-2 capsules as needed three times a day Orally for 30 days As needed Active Sertraline HCl 50 MG 1 tablet Orally Onc e a day for 30 days Active Sertraline HCl 50 MG TAKE 1 TABLET BY [facility] EVERY DAY FOR 30 DAYS for 90 Not-Taking Social History Tobacco Use: Social History Observation Description Date Details (start date - stop date) Current Smoker NA - NA Dont use, Tobacco Use/Smoking Question Answer Notes Are you a current every day smoker Additional Findings: Tobacco User Light cigarett e smoker ((1-9 cigs/day) Section Notes: Reviewed [place] PDMP PRESCRIPTION # FILLED WRITTEN DRUG LABEL QTY DAYS STRENGTH MME [facility] REFILL NO. REFILLS STATE 07/20/2023 07/20/2023 Phentermine Hcl 30.0 30 37.5 MG Ignacio Maldonado [facility] - [id number] [id number], [place], [place] NA 1 [place] 1 [id number] 05/16/2023 05/16/2023 Phentermine Hcl 30.0 30 37.5 MG Ignacio Maldonado [facility] - [id number] [facility] # [id number], [place], [place] NA 0 [place] 1 [id number] 03/28/2023 03/28/2023 Phentermine Hcl 30.0 30 37.5 MG NA El-Gricelda brandt Md [id number] PRESCRIPTION # FILLED WRITTE N DRUG LABEL QTY DAYS STRENGTH MME [facility] REFILL NO. REFILLS STATE PATIENT [id number] 07/20/2023 07/20/2023 Phentermine Hcl 30.0 30 37.5 MG Ignacio Maldonado [facility] - [id number] [facility] # [id number], [place], [place] NA 1 [place] [id number] 05/16/2023 05/16/2023 Phentermine Hcl 30.0 30 37.5 MG Ignacio Maldonado [facility] - [id number] [facility] # [id number], [place], [place] NA 0 [place] [id number] 03/28/2023 03/28/2023 Phentermine Hcl 30.0 30 37.5 MG NA Ronald-Gricelda brandt Md [id number] PRESCRIPTION # FILLED WRITTE N DRUG LABEL QTY DAYS STRENGTH MME [facility] REFILL NO. REFILLS STATE PATIENT [id number] 07/20/2023 07/20/2023 Phentermine Hcl 30.0 30 37.5 MG Ignacio Maldonado [facility] - [id number] [facility] # [id number], [place], [place] NA 1 [place] [id number] 05/16/2023 05/16/2023 Phentermine Hcl 30.0 30 37.5 MG Ignacio Maldonado [facility] - [id number] [facility] # [id number], [place], [place] NA 0 [place] [id number] 03/28/2023 03/28/2023 Phentermine Hcl 30.0 30 37.5 MG NA Gricelda Rodriguez Md [id number] Problems Problem Type SNOMED Code ICD Code Onset Dates Problem Status W/U Status Risk Notes Problem Tobacco user (034979186) Nicotine dependence, unspecified, uncomplicated (F17.200) Active confirmed Problem Generalized anxiety disorder (99778605) SAMI (generalized anxiety disorder) (F41.1) Active confirmed Problem Moderate recurrent major depression (28181066) Depression, major, recurrent, moderate (F33.1) Active confirmed Encounters Encounter Location Date Provider Diagnosis [address] [address] 08/29/2023 Silvana Benítez [address] [address] 08/29/2023 Silvana Jackelin Nicotine dependence, unspecified, uncomplicated F17.200 ; Depression, major, recurrent, moderate F33.1 and SAMI (generalized anxiety disorder) F41.[address] [address] 09/26/2023 Silvanaha Benítez Nicotine dependence, unspecified, uncomplicated F17.200 ; Depression, major, recurrent, moderate F33.1 and SAMI (generalized anxiety disorder) F41.[address] [address] 10/31/2023 Silvana Jackelin Nicotine dependence, unspecified, uncomplicated F17.200 ; Depression, major, recurrent, moderate F33.1 and SAMI (generalized anxiety disorder) F41.[address] [address] 11/28/2023 Silvana Jackelin Nicotine dependence, unspecified, uncomplicated F17.200 ; Depression, major, recurrent, moderate F33.1 and SAMI (generalized anxiety disorder) F41.1 Assessments Encounter Date Diagnosis (ICD Code) Assessment Notes Treatment Notes Treatment Clinical Notes Section Notes 08/29/2023 Nicotine dependence, unspecified, uncomplicated (ICD-10 - F17.200) 09/26/2023 Nicotine dependence, unspecified, uncomplicated (ICD-10 - F17.200) 10/31/2023 Nicotine dependence, unspecified, uncomplicated (ICD-10 - F17.200) 11/28/2023 Nicotine dependence, unspecified, uncomplicated (ICD-10 - F17.200) 10/31/2023 Depression, major, recurrent, moderate (ICD-10 - F33.1) Will have her sign disclosure for recent labs Start Zoloft 50mg once daily [facility] on file. Continue with therapy PHQ-9 is 7 today. Refusing warm handoff to crisis. Pt has Crisis contact information if needed Will follow up once results are recieved or sooner if needed 11/28/2023 Depression, major, recurrent, moderate (ICD-10 - F33.1) Will have her sign disclosure for recent labs Start Zoloft 50mg once daily [facility] on file. Continue with therapy PHQ-9 is 4 today. Refusing warm handoff to crisis. Pt has Crisis contact information if needed Will follow up once results are recieved or sooner if needed 08/29/2023 Depression, major, recurrent, moderate (ICD-10 - F33.1) Will have her sign disclosure for recent labs [facility] testing ordered Continue with therapy PHQ-9 is 11 today. Refusing warm handoff to crisis. Pt has Crisis contact information if needed Will follow up once results are recieved or sooner if needed 09/26/2023 Depression, major, recurrent, moderate (ICD-10 - F33.1) Will have her sign disclosure for recent labs [facility] testing ordered, pt has to complete Continue with therapy PHQ-9 is 7 today. Refusing warm handoff to crisis. Pt has Crisis contact information if needed Will follow up once results are recieved or sooner if needed 09/26/2023 SAMI (generalized anxiety disorder) (ICD-10 - F41.1) 08/29/2023 SAMI (generalized anxiety disorder) (ICD-10 - F41.1) 11/28/2023 SAMI (generalized anxiety disorder) (ICD-10 - [...] will not result in a negative outcome. 10/31/2023 SAMI (generalized anxiety disorder) (ICD-10 - F41.1) Continue Hydroxyzine as needed Continue therapy 08/29/2023 Other Patient was edu cated on diagnosis and symptoms. Discussed the treatment plan, patient is agreeable and accepting of treatment plan. Patient denies further questions or concerns currently. Discussed sleep hygiene and caffeine intake. Encouraged to improve diet, get regular exercise, daily relaxation, and work on managing stress levels.Return to clinic 4 weeks.Need disclosure signed for lab work. Continue with counseling.Educated patient that if she is or planning to become , she is to let the provider know immediately.The Patient/Guardian is aware of the need to contact the office or return for an earlier appointment if any problems or concerns arise. May also contact the 24-hour crisis hotline ([facility]), refer to the closest emergency room or [...] combined with substance use/abuse and/or drinking alcohol. 09/26/2023 Other Patient was edu cated on diagnosis and symptoms. Discussed the treatment plan, patient is agreeable and accepting of treatment plan. Patient denies further questions or concerns currently. Discussed sleep hygiene and caffeine intake. Encouraged to improve diet, get regular exercise, daily relaxation, and work on managing stress levels.Return to clinic 3 weeks.Need disclosure signed for recent labs. Continue with counseling.Educated patient that if she is or planning to become , she is to let the provider know immediately.The Patient/Guardian is aware of the need to contact the office or return for an earlier appointment if any problems or concerns arise. May also contact the 24-hour crisis hotline ([facility]), refer to the closest emergency room or [...] combined with substance use/abuse and/or drinking alcohol. 11/28/2023 Other Patient was edu cated on [...] May also contact the 24-hour crisis hotline ([facility]), refer to the closest emergency room or [...] combined with substance use/abuse and/or drinking alcohol. 10/31/2023 Other Patient was edu cated on diagnosis and symptoms. Discussed the treatment plan, patient is agreeable and accepting of treatment plan. Patient denies further questions or concerns currently. Discussed sleep hygiene and caffeine intake. Encouraged to improve diet, get regular exercise, daily relaxation, and work on managing stress levels.Return to clinic 4 weeks.Need disclosure signed for recent labs. Continue with counseling.The Patient/Guardian is aware of the need to contact the office or return for an earlier appointment if any problems or concerns arise. May also contact the 24-hour crisis hotline ([facility]), refer to the closest emergency room or [...] combined with substance use/abuse and/or drinking alcohol. Client was educated about risks and benefits of medication, alternative to medication, alternative to no medications, suicidal ideation with SSRI, education related to psychiatric illness, self-administration, compliance with medication, storage and safeguarding of medication. Will assess appropriateness of medication reduction after client shows stability in current clinical s/s. Reduction will not result in a negative outcome. Plan Of Treatment No Information Insurance Providers Payer Name Payer Address Payer Phone Subscriber Number Group Number Insured Name Patient Relationship to Insured Coverage Start Date Coverage End Date [facility] [address] [place] [phone] [id number] Carmen Lloyd Self - patient is the insured 4 [facility] [employer] [facility] [address] [place] [phone] [id number] Carmen Lloyd Self - patient is the insured 2 4 [facility] [employer] [address] [place] [phone] [id number] Carmen Lloyd Self - patient is the insured 3 4 Medical (General) History Medical History History ICD Code asthma - moderate persistent Surgical History Surgery Date(Month/Year) tubal ligation 2018 Hospitalization History Reason Date(Month/Year) psych fermin 2018
== END 2024-06-02 06:00 | disposition home or self-care (01) ==
PROVIDERS: Emergency Provider Emergency Medicine; PCP Internal Medicine
DX: R00.2 Palpitations (principal); F41.9 Anxiety disorder, unspecified; F17.210 Nicotine dependence, cigarettes, uncomplicated; Z20.822 Contact with and (suspected) exposure to COVID-19
CPT/HCPCS: 36415; 71045; 80053; 85025; 87637; 87651; 93005; 96374; 99284; J3360

== ENCOUNTER 2025-05-06 12:41 | Outpatient (CLI) | payer OTHER, SELFPAY ==
--- NOTE | ~2025-05-06 | XR_ITS ---
EXAMINATION: XR chest 2V 05/06/2025 13:13 INDICATION: Dyspnea PROCEDURE: 2 view chest COMPARISON: 06/02/2024 FINDINGS: The lungs are clear. The cardiomediastinal silhouette is within normal limits. There are no pleural effusions. There is no pneumothorax suspected. IMPRESSION: 1: NO ACUTE CARDIOPULMONARY DISEASE. Reviewed, dictated and finalized at location I. N [facility]
== END 2025-05-06 12:42 | disposition home or self-care (01) ==
PROVIDERS: PCP Family Medicine; Visit Provider Family Medicine
DX: Z77.098 Contact with and (suspected) exposure to other hazardous, chiefly nonmedicinal, chemicals (principal)
CPT/HCPCS: 71046